=== PATIENT | male | born 1990 | race Caucasian/White ===

== ENCOUNTER 2016-12-12 19:08 | Inpatient (IN) | payer OTHER ==
[2016-12-12] MEDS ORDERED: IOPAMIDOL (ISOVUE-300) 100 ML BTL ONE (19:21)
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
[2016-12-12 19:23] LABS: % IMMATURE GRANULYOCYTES 1.1 % (0.0-1.1); ADD DIFF? NO; ADD MORPH? NO; ADD SCAN? NO; ATYPICAL LYMPHOCYTE FLAG 10 (0-99); FRAGMENT RBC FLAG 0 (0-99); HEMATOCRIT 41.7 % (40.0-51.0); HEMOGLOBIN 14.7 g/dL (13.7-17.5); LEFT SHIFT FLG 10 (0-99); LIPEMIA HEMOLYSIS FLAG 90 (0-99); MEAN CELL HEMOGLOBIN 30.6 pg (27.9-34.1); MEAN CELL HEMOGLOBIN CONCENTR. 35.3 g/dL (32.4-36.7); MEAN CELL VOLUME 86.7 fL (81.5-99.8); MEAN PLATELET VOLUME 11.3 fL (8.7-11.7); PLATELET CLUMPS FLAG 0 (0-99); PLATELET COUNT 276 10^3/uL (150-400); RED BLOOD CELL COUNT 4.81 10^6/uL (4.40-6.38); RED CELL DISTRIBUTION WIDTH 11.9 % (11.5-15.2)
[2016-12-12 19:36] LABS: ANION GAP 15 mEq/L (8-16); CALCIUM 9.4 mg/dL (8.5-10.4); CARBON DIOXIDE 24 mEq/l (22-31); CHLORIDE 108 mEq/L (97-110); CREATININE 1.2 mg/dL (0.7-1.3); GLOMERULAR FILTRATION RATE > 60; GLUCOSE 110 mg/dL (70-100); POTASSIUM 3.9 mEq/L (3.5-5.2); SODIUM 147 mEq/L (134-144)
[2016-12-12] MEDS ORDERED: fentaNYL 100 MCG/2 ML INJ ONE (19:38)
[2016-12-12] MEDS ORDERED: ONDANSETRON 4 MG/2 ML VIAL ONE (19:38)
[2016-12-12] MEDS ORDERED: KETAMINE 100 MG/10 ML SYR ONE (20:03)
[2016-12-12] MEDS ORDERED: KETAMINE 100 MG/10 ML SYR IVP ONE ×2 (20:07→20:51)
[2016-12-12 20:11] LABS: INR 1.22 (0.83-1.16); PROTIME(PATIENT) 15.4 SEC (12.0-15.0)
[2016-12-12 20:12] LABS: APTT 21.8 SEC (23.0-38.0)
[2016-12-12] MEDS ORDERED: fentaNYL 100 MCG/2 ML INJ IVP ONE ×2 (20:15→20:47)
[2016-12-12] MEDS ORDERED: ONDANSETRON 4 MG/2 ML VIAL IVP ONE (20:15)
[2016-12-12] MEDS ORDERED: NS 1,000 ML IV ONE (20:15)
[2016-12-12 20:17] LABS: HEMATOCRIT 37.4 % (40.0-51.0); HEMOGLOBIN 13.1 g/dL (13.7-17.5)
[2016-12-12] MEDS ORDERED: KETAMINE 500 MG/10 ML VIAL IVP ONE ×2 (21:07→21:35)
[2016-12-12] MEDS ORDERED: NALOXONE HCL 0.4 MG/ML INJ IVP PRN ×2 (21:46→21:51)
[2016-12-12] MEDS ORDERED: ONDANSETRON 4 MG/2 ML VIAL IVP PRN (21:46)
[2016-12-12] MEDS ORDERED: LORazepam 2 MG/ML INJ IVP PRN (21:46)
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
[2016-12-12] MEDS: morphINE PCA 30 MG/30 ML PCA IV PRN (22:14)
[2016-12-12] MEDS: NS 1,000 ML IV SCH (22:15)
[2016-12-12 22:25] LABS: BILIRUBIN,TOTAL 0.6 mg/dL (0.1-1.4); BILIRUBIN-CONJUGATED 0.4 mg/dL (0.0-0.5); BILIRUBIN-UNCONJUGATED 0.2 mg/dL (0.0-1.1); TOTAL PROTEIN 6.7 g/dL (6.3-8.2)
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
[2016-12-13 05:56] LABS: % IMMATURE GRANULYOCYTES 0.4 % (0.0-1.1); ABSOLUTE IMMATURE GRANULOCYTES 0.04 10^3/uL (0.00-0.10); ADD DIFF? NO; ADD MORPH? NO; ADD SCAN? NO; ATYPICAL LYMPHOCYTE FLAG 0 (0-99); FRAGMENT RBC FLAG 0 (0-99); HEMATOCRIT 35.9 % (40.0-51.0); HEMOGLOBIN 12.5 g/dL (13.7-17.5); LEFT SHIFT FLG 10 (0-99); LIPEMIA HEMOLYSIS FLAG 90 (0-99); MEAN CELL HEMOGLOBIN 30.9 pg (27.9-34.1); MEAN CELL HEMOGLOBIN CONCENTR. 34.8 g/dL (32.4-36.7); MEAN CELL VOLUME 88.6 fL (81.5-99.8); PLATELET CLUMPS FLAG 0 (0-99); PLATELET COUNT 191 10^3/uL (150-400); RED BLOOD CELL COUNT 4.05 10^6/uL (4.40-6.38); RED CELL DISTRIBUTION WIDTH 12.3 % (11.5-15.2)
[2016-12-13 08:40] LABS: ALANINE AMINOTRANSFERASE 724 IU/L (21-72); ALBUMIN 3.4 g/dL (3.5-5.0); ALKALINE PHOSPHATASE 36 IU/L (38-126); ANION GAP 9 mEq/L (8-16); ASPARTATE AMINOTRANSFERASE 727 IU/L (17-59); BILIRUBIN,TOTAL 1.2 mg/dL (0.1-1.4); CALCIUM 8.2 mg/dL (8.5-10.4); CARBON DIOXIDE 25 mEq/l (22-31); CHLORIDE 111 mEq/L (97-110); GLOMERULAR FILTRATION RATE > 60; GLUCOSE 122 mg/dL (70-100); POTASSIUM 4.2 mEq/L (3.5-5.2); SODIUM 145 mEq/L (134-144); TOTAL PROTEIN 5.6 g/dL (6.3-8.2)
[2016-12-13] MEDS ORDERED: PNEUMOCOCCAL 0.5ML VACCINE VIAL IM ONE (09:03)
[2016-12-13] MEDS: FAMOTIDINE 20 MG/NACL 50 ML IV SCH ×2 (09:08→20:43)
[2016-12-13] MEDS: NS 1,000 ML IV SCH ×2 (09:11→17:58)
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
[2016-12-13] MEDS: morphINE PCA 30 MG/30 ML PCA IV PRN ×2 (10:03→17:57)
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
--- NOTE | 2016-12-14 00:21 | TRAUMAPN ---
Assessment/Plan: PAD#1 12/13/2016 4138 Assessment: * TERTIARY EVALUATION SHOWS NO NEW /UNRECOGNIZED INJURIES *Grade 4 liver laceration - minimal drop in Hct. *Right 11th rib Fracture - CXR has been stable *Abdominal wall hernia/rectus sheath tear- Herniated small bowel has been reduced (by * am 12/13) *Urethral stricture - Cui passed without difficulty by Rhonda Winchester *Passing flatus/Minimal NG output. Plan: With chance of further hepatic bleeding diminishing and GI tract function returning, will start clear liquids in AM will follow H/H Will plan FU CXR in AM Will delay intervention for rectus sheath tear at this time. Will consider reimaging. Subjective: No complaints but NG irritation Objective: Vital Signs Temp Pulse Resp BP Pulse Ox 37.7 C 95 17 114/59 L 100 12/13/16 20:00 12/13/16 22:00 12/13/16 22:00 12/13/16 22:00 12/13/16 22:00 Laboratory Results 12/13/16 21:45 12/13/16 08:15 12/12/16 12/13/16 12/14/16 05:59 05:59 05:59 Intake Total 1734 1250 Output Total 400 1950 Balance 1334 -700 PT 15.4 SEC (12.0-15.0) H 12/12/16 19:10 INR 1.22 (0.83-1.16) H 12/12/16 19:10 - C-Spine Clearance Cervical Spine Cleared: Yes Physical Exam - Physical Exam General Appearance: WD/WN, alert, no apparent distress EENT: PERRL/EOMI, normal ENT inspection, pharynx normal, other (NG tube in place ( but to be removed)) Neck: non-tender, full range of motion, supple, normal inspection Respiratory: chest non-tender, lungs clear, normal breath sounds, other ( Complains of sternal tenderness) Cardiac/Chest: normal peripheral pulses, regular rate, rhythm Abdomen: normal bowel sounds, non-tender, soft, other (Slight ecchymosis in right inguinal region. Examined with Dr. Beck this AM. Hernia has reduced) Male Genitalia: deferred Rectal: deferred Back: Normal inspection Skin: normal color, warm/dry Lymphatic: no adenopathy Extremities: normal range of motion, non-tender, normal inspection Neuro/Psych: no motor/sensory deficits, alert, normal mood/affect, oriented x 3 Time Spent w/Patient (minutes): 30 (critical care time/family discussion)
[2016-12-14] MEDS: NS 1,000 ML IV SCH ×2 (03:28→14:05)
[2016-12-14 06:25] LABS: HEMATOCRIT 32.1 % (40.0-51.0); MEAN CELL HEMOGLOBIN 30.7 pg (27.9-34.1); MEAN CELL HEMOGLOBIN CONCENTR. 34.3 g/dL (32.4-36.7); MEAN CELL VOLUME 89.7 fL (81.5-99.8); RED BLOOD CELL COUNT 3.58 10^6/uL (4.40-6.38); RED CELL DISTRIBUTION WIDTH 12.3 % (11.5-15.2)
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
[2016-12-14] MEDS: FAMOTIDINE 20 MG/NACL 50 ML IV SCH ×2 (09:36→20:57)
[2016-12-14] MEDS: Lisdexamfetamine Dimesylate [Vyvanse] 30 MG PO SCH (09:36)
[2016-12-14] MEDS ORDERED: LACTULOSE 20 GM/30 ML UDCUP PO PRN (15:15)
[2016-12-14] MEDS ORDERED: POLYETHYLENE GLYCOL 3350 17 GM PKT PO PRN (15:15)
[2016-12-14] MEDS ORDERED: BISACODYL 10 MG SUPP PR PRN (15:15)
[2016-12-14] MEDS: MAGNESIUM HYDROXIDE 30 ML UDCUP PO PRN (15:43)
[2016-12-14] MEDS: SENNOSIDES/DOCUSATE SODIUM TAB PO SCH ×2 (15:44→20:57)
[2016-12-14] MEDS: morphINE PCA 30 MG/30 ML PCA IV PRN (20:14)
--- NOTE | 2016-12-14 20:14 | TRAUMAPN ---
Assessment/Plan: PAD#1 12/13/2016 2350 Assessment: * TERTIARY EVALUATION SHOWS NO NEW /UNRECOGNIZED INJURIES *Grade 4 liver laceration - minimal drop in Hct. *Right 11th rib Fracture - CXR has been stable *Abdominal wall hernia/rectus sheath tear- Herniated small bowel has been reduced (by * am 12/13) *Urethral stricture - Cui passed without difficulty by Rhonda Winchester *Passing flatus/Minimal NG output. Plan: With chance of further hepatic bleeding diminishing and GI tract function returning, will start clear liquids in AM will follow H/H Will plan FU CXR in AM Will delay intervention for rectus sheath tear at this time. Will consider reimaging. PAD#2 12/14/2016 20:09 Assessment: *Grade 4 liver laceration - stable, LFTs resolving *Right 11th rib Fracture - CXR stable - still needs to work on IS *Abdominal wall hernia/rectus sheath tear- Will reassess with CT on after he has been up walking *Urethral stricture - Cui passed without difficulty by Rhonda Winchester *Passing flatus, no stool yet Plan: F/u CT on Will mobilize and advance diet Will follow CBC and LFTs Need to improve IS results Subjective: I am getting full easily . Objective: Vital Signs Temp Pulse Resp BP Pulse Ox 37.3 C 92 18 115/55 L 97 12/14/16 18:00 12/14/16 18:00 12/14/16 18:00 12/14/16 18:00 12/14/16 18:00 Laboratory Results 12/14/16 05:55 12/13/16 08:15 12/13/16 12/14/16 12/15/16 05:59 05:59 05:59 Intake Total 1734 2452 1765 Output Total 400 2725 1900 Balance 1334 -273 -135 PT 15.4 SEC (12.0-15.0) H 12/12/16 19:10 INR 1.22 (0.83-1.16) H 12/12/16 19:10 - C-Spine Clearance Cervical Spine Cleared: Yes Physical Exam - Physical Exam General Appearance: WD/WN, alert, mild distress EENT: PERRL/EOMI, normal ENT inspection Neck: non-tender, full range of motion, supple, normal inspection Respiratory: chest non-tender, lungs clear, normal breath sounds (No E-A changes ) Cardiac/Chest: regular rate, rhythm Abdomen: normal bowel sounds, other (Right lower quadrant ecchymosis is becoming more apparent. no buldging / obvious hernia) Male Genitalia: deferred Rectal: deferred Back: Normal inspection Skin: normal color, warm/dry Extremities: normal range of motion, non-tender, normal inspection Neuro/Psych: no motor/sensory deficits, alert, normal mood/affect, oriented x 3 Time Spent w/Patient (minutes): 30 (time spent evaluating patient and discussing plans with family)
[2016-12-15 07:14] LABS: % IMMATURE GRANULYOCYTES 0.3 % (0.0-1.1); ABSOLUTE IMMATURE GRANULOCYTES 0.02 10^3/uL (0.00-0.10); ADD DIFF? NO; ADD MORPH? NO; ADD SCAN? NO; ATYPICAL LYMPHOCYTE FLAG 0 (0-99); FRAGMENT RBC FLAG 0 (0-99); HEMATOCRIT 30.8 % (40.0-51.0); HEMOGLOBIN 10.8 g/dL (13.7-17.5); LEFT SHIFT FLG 0 (0-99); LIPEMIA HEMOLYSIS FLAG 90 (0-99); MEAN CELL HEMOGLOBIN 30.7 pg (27.9-34.1); MEAN CELL HEMOGLOBIN CONCENTR. 35.1 g/dL (32.4-36.7); MEAN CELL VOLUME 87.5 fL (81.5-99.8); MEAN PLATELET VOLUME 10.7 fL (8.7-11.7); PLATELET CLUMPS FLAG 0 (0-99); PLATELET COUNT 147 10^3/uL (150-400); RED BLOOD CELL COUNT 3.52 10^6/uL (4.40-6.38); RED CELL DISTRIBUTION WIDTH 11.9 % (11.5-15.2)
[2016-12-15 07:23] LABS: INR 1.23 (0.83-1.16); PROTIME(PATIENT) 15.5 SEC (12.0-15.0)
[2016-12-15 07:55] LABS: ALANINE AMINOTRANSFERASE 399 IU/L (21-72); ALBUMIN 3.2 g/dL (3.5-5.0); ALKALINE PHOSPHATASE 179 IU/L (38-126); ANION GAP 7 mEq/L (8-16); ASPARTATE AMINOTRANSFERASE 346 IU/L (17-59); BILIRUBIN,TOTAL 3.7 mg/dL (0.1-1.4); CALCIUM 8.5 mg/dL (8.5-10.4); CARBON DIOXIDE 27 mEq/l (22-31); CHLORIDE 105 mEq/L (97-110); CREATININE 0.8 mg/dL (0.7-1.3); GLOMERULAR FILTRATION RATE > 60; GLUCOSE 89 mg/dL (70-100); POTASSIUM 3.7 mEq/L (3.5-5.2); SODIUM 139 mEq/L (134-144); TOTAL PROTEIN 5.5 g/dL (6.3-8.2)
[2016-12-15 08:02] LABS: BILIRUBIN-CONJUGATED 2.1 mg/dL (0.0-0.5); BILIRUBIN-UNCONJUGATED 1.6 mg/dL (0.0-1.1)
[2016-12-15] MEDS: SENNOSIDES/DOCUSATE SODIUM TAB PO SCH ×2 (08:02→20:02)
[2016-12-15] MEDS: Lisdexamfetamine Dimesylate [Vyvanse] 30 MG PO SCH (08:03)
[2016-12-15] MEDS: FAMOTIDINE 20 MG/NACL 50 ML IV SCH ×2 (08:49→20:03)
--- NOTE | 2016-12-15 10:47 | TRAUMAPN ---
Assessment/Plan: PAD#1 12/13/2016 2350 Assessment: * TERTIARY EVALUATION SHOWS NO NEW /UNRECOGNIZED INJURIES *Grade 4 liver laceration - minimal drop in Hct. *Right 11th rib Fracture - CXR has been stable *Abdominal wall hernia/rectus sheath tear- Herniated small bowel has been reduced (by * am 12/13) *Urethral stricture - Barrios passed without difficulty by Rhonda Winchester *Passing flatus/Minimal NG output. Plan: With chance of further hepatic bleeding diminishing and GI tract function returning, will start clear liquids in AM will follow H/H Will plan FU CXR in AM Will delay intervention for rectus sheath tear at this time. Will consider reimaging. PAD#2 12/14/2016 20:09 Assessment: *Grade 4 liver laceration - stable, LFTs resolving *Right 11th rib Fracture - CXR stable - still needs to work on IS *Abdominal wall hernia/rectus sheath tear- Will reassess with CT on after he has been up walking *Urethral stricture - Barrios passed without difficulty by Rhonda Winchester *Passing flatus, no stool yet Plan: F/u CT on Will mobilize and advance diet Will follow CBC and LFTs Need to improve IS results PAD#3 12/15/2016 Assessment: *Grade 4 liver laceration - stable, LFTs resolving but Bilirubin up (leak vs. lysis of blood/hematoma vs. combination) *Right 11th rib Fracture - CXR stable - still needs to work on IS ( only to 1750 ) *Abdominal wall hernia/rectus sheath tear- Will reassess with CT today *Urethral stricture - Barrios passed without difficulty by Rhonda Winchester *Passing flatus, no stool yet, eating Plan: F/u CT today to assess for biloma and to assess abdominal wall injury Will continue to mobilize Will follow CBC and LFTs Need to improve IS results Continue barrios since stricture noted and recent urinary retention ( 600 cc) Will get F/u CXR tomorrow Subjective: RLQ pain less today with walking Objective: Vital Signs Temp Pulse Resp BP Pulse Ox 36.7 C 88 16 130/68 H 92 12/15/16 10:25 12/15/16 10:25 12/15/16 10:25 12/15/16 10:25 12/15/16 10:25 Laboratory Results 12/15/16 07:00 12/15/16 07:00 12/14/16 12/15/16 12/16/16 05:59 05:59 05:59 Intake Total 2452 2991.3 Output Total 2725 3040 Balance -273 -48.7 PT 15.5 SEC (12.0-15.0) H 12/15/16 07:00 INR 1.23 (0.83-1.16) H 12/15/16 07:00 - C-Spine Clearance Cervical Spine Cleared: Yes Physical Exam - Physical Exam General Appearance: WD/WN, alert, mild distress EENT: PERRL/EOMI Neck: non-tender, full range of motion, supple, normal inspection Respiratory: chest non-tender, lungs clear, normal breath sounds Cardiac/Chest: regular rate, rhythm Abdomen: normal bowel sounds, other (elevator tender in RLQ) Male Genitalia: deferred Rectal: deferred Back: Normal inspection Skin: normal color, warm/dry Lymphatic: no adenopathy Extremities: normal range of motion, non-tender, normal inspection Neuro/Psych: no motor/sensory deficits, alert, normal mood/affect, oriented x 3 Time Spent w/Patient (minutes): 25 (Moved out of ICU after rounds today)
[2016-12-15] MEDS ORDERED: IOPAMIDOL (ISOVUE-300) 100 ML BTL ONE (13:11)
[2016-12-15] MEDS: HYDROmorphONE/DILAUDID 2 MG TAB PO PRN ×2 (13:59→18:22)
[2016-12-15] MEDS: HYDROmorphONE/DILAUDID 1 MG/ML SYR IVP PRN ×2 (14:00→20:23)
[2016-12-15] MEDS: MAGNESIUM HYDROXIDE 30 ML UDCUP PO PRN (18:28)
[2016-12-16] MEDS: HYDROmorphONE/DILAUDID 2 MG TAB PO PRN ×5 (01:56→23:26)
[2016-12-16 05:46] LABS: HEMATOCRIT 30.1 % (40.0-51.0); HEMOGLOBIN 10.8 g/dL (13.7-17.5); MEAN CELL HEMOGLOBIN 31.4 pg (27.9-34.1); MEAN CELL HEMOGLOBIN CONCENTR. 35.9 g/dL (32.4-36.7); MEAN CELL VOLUME 87.5 fL (81.5-99.8); RED BLOOD CELL COUNT 3.44 10^6/uL (4.40-6.38); RED CELL DISTRIBUTION WIDTH 12.2 % (11.5-15.2)
[2016-12-16 06:02] LABS: ALANINE AMINOTRANSFERASE 299 IU/L (21-72); ALBUMIN 3.4 g/dL (3.5-5.0); ALKALINE PHOSPHATASE 396 IU/L (38-126); ANION GAP 10 mEq/L (8-16); ASPARTATE AMINOTRANSFERASE 279 IU/L (17-59); BILIRUBIN,TOTAL 4.3 mg/dL (0.1-1.4); CALCIUM 8.4 mg/dL (8.5-10.4); CARBON DIOXIDE 26 mEq/l (22-31); CHLORIDE 104 mEq/L (97-110); CREATININE 0.8 mg/dL (0.7-1.3); GLOMERULAR FILTRATION RATE > 60; GLUCOSE 97 mg/dL (70-100); POTASSIUM 3.6 mEq/L (3.5-5.2); SODIUM 140 mEq/L (134-144); TOTAL PROTEIN 5.7 g/dL (6.3-8.2)
[2016-12-16 06:09] LABS: BILIRUBIN-CONJUGATED 2.2 mg/dL (0.0-0.5); BILIRUBIN-UNCONJUGATED 2.1 mg/dL (0.0-1.1)
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
[2016-12-16] MEDS: SENNOSIDES/DOCUSATE SODIUM TAB PO SCH ×2 (09:55→20:54)
[2016-12-16] MEDS: FAMOTIDINE 20 MG/NACL 50 ML IV SCH ×2 (09:55→20:54)
[2016-12-16] MEDS: Lisdexamfetamine Dimesylate [Vyvanse] 30 MG PO SCH (09:56)
[2016-12-17] MEDS: HYDROmorphONE/DILAUDID 2 MG TAB PO PRN ×5 (05:33→22:46)
[2016-12-17 05:37] LABS: ABSOLUTE IMMATURE GRANULOCYTES 0.07 10^3/uL (0.00-0.10); ADD DIFF? NO; ADD MORPH? NO; ADD SCAN? NO; ATYPICAL LYMPHOCYTE FLAG 0 (0-99); FRAGMENT RBC FLAG 0 (0-99); HEMATOCRIT 31.8 % (40.0-51.0); HEMOGLOBIN 11.1 g/dL (13.7-17.5); LEFT SHIFT FLG 10 (0-99); LIPEMIA HEMOLYSIS FLAG 90 (0-99); MEAN CELL HEMOGLOBIN 30.6 pg (27.9-34.1); MEAN CELL HEMOGLOBIN CONCENTR. 34.9 g/dL (32.4-36.7); MEAN CELL VOLUME 87.6 fL (81.5-99.8); MEAN PLATELET VOLUME 10.6 fL (8.7-11.7); PLATELET CLUMPS FLAG 10 (0-99); PLATELET COUNT 200 10^3/uL (150-400); RED BLOOD CELL COUNT 3.63 10^6/uL (4.40-6.38); RED CELL DISTRIBUTION WIDTH 12.3 % (11.5-15.2)
[2016-12-17 05:51] LABS: ALBUMIN 3.3 g/dL (3.5-5.0); BILIRUBIN,TOTAL 2.1 mg/dL (0.1-1.4); BILIRUBIN-CONJUGATED 0.8 mg/dL (0.0-0.5); BILIRUBIN-UNCONJUGATED 1.3 mg/dL (0.0-1.1); TOTAL PROTEIN 5.7 g/dL (6.3-8.2)
--- NOTE | 2016-12-17 09:31 | TRAUMAPN ---
Assessment/Plan: PAD#1 12/13/2016 2350 Assessment: * TERTIARY EVALUATION SHOWS NO NEW /UNRECOGNIZED INJURIES *Grade 4 liver laceration - minimal drop in Hct. *Right 11th rib Fracture - CXR has been stable *Abdominal wall hernia/rectus sheath tear- Herniated small bowel has been reduced (by * am 12/13) *Urethral stricture - Barrios passed without difficulty by Rhonda Winchester *Passing flatus/Minimal NG output. Plan: With chance of further hepatic bleeding diminishing and GI tract function returning, will start clear liquids in AM will follow H/H Will plan FU CXR in AM Will delay intervention for rectus sheath tear at this time. Will consider reimaging. PAD#2 12/14/2016 20:09 Assessment: *Grade 4 liver laceration - stable, LFTs resolving *Right 11th rib Fracture - CXR stable - still needs to work on IS *Abdominal wall hernia/rectus sheath tear- Will reassess with CT on after he has been up walking *Urethral stricture - Barrios passed without difficulty by Rhonda Winchester *Passing flatus, no stool yet Plan: F/u CT on Will mobilize and advance diet Will follow CBC and LFTs Need to improve IS results PAD#3 12/15/2016 Assessment: *Grade 4 liver laceration - stable, LFTs resolving but Bilirubin up (leak vs. lysis of blood/hematoma vs. combination) *Right 11th rib Fracture - CXR stable - still needs to work on IS ( only to 1749 ) *Abdominal wall hernia/rectus sheath tear- Will reassess with CT today *Urethral stricture - Barrios passed without difficulty by Rhonda Winchester *Passing flatus, no stool yet, eating Plan: F/u CT today to assess for biloma and to assess abdominal wall injury Will continue to mobilize Will follow CBC and LFTs Need to improve IS results Continue barrios since stricture noted and recent urinary retention ( 600 cc) Will get F/u CXR tomorrow PAD#4 12/17/2016 Assessment: *Grade 4 liver laceration - stable, LFTs & bilirubin resolving *Right 11th rib Fracture - CXR stable with atelectasis vs contusion- still needs to work on IS ( only to 1999) *Abdominal wall hernia/rectus sheath tear- tolerating activity - not yet set for surgery *Urethral stricture - Barrios passed without difficulty by Rhonda Winchester *Passing flatus, no stool yet, eating ( no obstruction with hernia ) Plan: Will continue to mobilize Will follow CBC and LFTs Need to improve IS results Continue Barrios since stricture noted and recent urinary retention ( 600 cc). Note that he has self cathed in past. Objective: Vital Signs Temp Pulse Resp BP Pulse Ox 37.0 C 81 16 116/59 L 95 12/17/16 07:39 12/17/16 07:39 12/17/16 07:39 12/17/16 07:39 12/17/16 07:39 Laboratory Results 12/17/16 05:04 12/16/16 04:51 12/16/16 12/17/16 12/18/16 05:59 05:59 05:59 Intake Total 400 1250 Output Total 2500 3850 Balance -2100 -2600 PT 15.5 SEC (12.0-15.0) H 12/15/16 07:00 INR 1.23 (0.83-1.16) H 12/15/16 07:00 - C-Spine Clearance Cervical Spine Cleared: Yes Physical Exam - Physical Exam General Appearance: WD/WN, no apparent distress Neck: non-tender, full range of motion, supple, normal inspection Respiratory: chest non-tender, lungs clear, normal breath sounds Cardiac/Chest: regular rate, rhythm Abdomen: normal bowel sounds, soft, other (right inguinal fullness, has right flank/hip/lateral thigh ecchymosis) Male Genitalia: deferred Rectal: deferred Back: Normal inspection Skin: normal color, warm/dry Lymphatic: no adenopathy Extremities: normal range of motion Neuro/Psych: no motor/sensory deficits, alert, normal mood/affect, oriented x 3 Time Spent w/Patient (minutes): 25 ( part spent in family conference)
[2016-12-17] MEDS: FAMOTIDINE 20 MG/NACL 50 ML IV SCH ×2 (09:38→21:37)
[2016-12-17] MEDS: SENNOSIDES/DOCUSATE SODIUM TAB PO SCH ×2 (09:40→21:37)
[2016-12-17] MEDS: Lisdexamfetamine Dimesylate [Vyvanse] 30 MG PO SCH (10:12)
[2016-12-18] MEDS: HYDROmorphONE/DILAUDID 2 MG TAB PO PRN ×4 (04:06→21:04)
[2016-12-18 06:03] LABS: ALANINE AMINOTRANSFERASE 164 IU/L (21-72); ALBUMIN 3.5 g/dL (3.5-5.0); ALKALINE PHOSPHATASE 315 IU/L (38-126); ANION GAP 10 mEq/L (8-16); ASPARTATE AMINOTRANSFERASE 157 IU/L (17-59); BILIRUBIN,TOTAL 2.1 mg/dL (0.1-1.4); CALCIUM 9.1 mg/dL (8.5-10.4); CARBON DIOXIDE 23 mEq/l (22-31); CHLORIDE 105 mEq/L (97-110); CREATININE 0.9 mg/dL (0.7-1.3); GLOMERULAR FILTRATION RATE > 60; GLUCOSE 114 mg/dL (70-100); SODIUM 138 mEq/L (134-144); TOTAL PROTEIN 6.1 g/dL (6.3-8.2)
[2016-12-18 06:09] LABS: BILIRUBIN-CONJUGATED 0.8 mg/dL (0.0-0.5); BILIRUBIN-UNCONJUGATED 1.3 mg/dL (0.0-1.1)
[2016-12-18] MEDS: SENNOSIDES/DOCUSATE SODIUM TAB PO SCH ×2 (09:43→21:03)
[2016-12-18] MEDS: Lisdexamfetamine Dimesylate [Vyvanse] 30 MG PO SCH (09:46)
[2016-12-18] MEDS ORDERED: ONDANSETRON DISINTEGRATING 4 MG TAB PO PRN (09:48)
--- NOTE | 2016-12-18 09:56 | TRAUMAPN ---
Assessment/Plan: PAD#1 12/13/2016 2350 Assessment: * TERTIARY EVALUATION SHOWS NO NEW /UNRECOGNIZED INJURIES *Grade 4 liver laceration - minimal drop in Hct. *Right 11th rib Fracture - CXR has been stable *Abdominal wall hernia/rectus sheath tear- Herniated small bowel has been reduced (by * am 12/13) *Urethral stricture - Barrios passed without difficulty by Rhonda Winchester *Passing flatus/Minimal NG output. Plan: With chance of further hepatic bleeding diminishing and GI tract function returning, will start clear liquids in AM will follow H/H Will plan FU CXR in AM Will delay intervention for rectus sheath tear at this time. Will consider reimaging. PAD#2 12/14/2016 20:09 Assessment: *Grade 4 liver laceration - stable, LFTs resolving *Right 11th rib Fracture - CXR stable - still needs to work on IS *Abdominal wall hernia/rectus sheath tear- Will reassess with CT on after he has been up walking *Urethral stricture - Barrios passed without difficulty by Rhonda Winchester *Passing flatus, no stool yet Plan: F/u CT on Will mobilize and advance diet Will follow CBC and LFTs Need to improve IS results PAD#3 12/15/2016 Assessment: *Grade 4 liver laceration - stable, LFTs resolving but Bilirubin up (leak vs. lysis of blood/hematoma vs. combination) *Right 11th rib Fracture - CXR stable - still needs to work on IS ( only to 1749 ) *Abdominal wall hernia/rectus sheath tear- Will reassess with CT today *Urethral stricture - Barrios passed without difficulty by Rhonda Winchester *Passing flatus, no stool yet, eating Plan: F/u CT today to assess for biloma and to assess abdominal wall injury Will continue to mobilize Will follow CBC and LFTs Need to improve IS results Continue barrios since stricture noted and recent urinary retention ( 600 cc) Will get F/u CXR tomorrow PAD#4 12/17/2016 Assessment: *Grade 4 liver laceration - stable, LFTs & bilirubin resolving *Right 11th rib Fracture - CXR stable with atelectasis vs contusion- still needs to work on IS ( only to 1999) *Abdominal wall hernia/rectus sheath tear- tolerating activity - not yet set for surgery *Urethral stricture - Barrios passed without difficulty by Rhonda Winchester *Passing flatus, no stool yet, eating ( no obstruction with hernia ) Plan: Will continue to mobilize Will follow CBC and LFTs Need to improve IS results Continue Barrios since stricture noted and recent urinary retention ( 600 cc). Note that he has self cathed in past. PAD#5 12/18/2016 Assessment: *Grade 4 liver laceration - stable, LFTs resolving bili stable *Right 11th rib Fracture - CXR stable with atelectasis vs contusion- still needs to work on IS ( only to 1999) *Abdominal wall hernia/rectus sheath tear- tolerating activity - not yet set for surgery *Urethral stricture - Barrios passed without difficulty by Rhonda Winchester *Passing flatus and stool, eating ( no obstruction with hernia ) Plan: Will continue to mobilize Will follow CBC and LFTs Need to improve IS results Continue Barrios since stricture noted and recent urinary retention ( 600 cc). Note that he has self cathed in past. will get F/u CXR Consider possible surgical intervention tomorrow Subjective: Still hurts the most when I get out of bed but its ok when I walk Objective: Vital Signs Temp Pulse Resp BP Pulse Ox 36.9 C 92 20 132/64 H 98 12/18/16 08:00 12/18/16 08:00 12/18/16 08:00 12/18/16 08:00 12/18/16 08:00 Laboratory Results 12/17/16 05:04 12/18/16 05:16 12/17/16 12/18/16 12/19/16 05:59 05:59 05:59 Intake Total 1250 700 Output Total 3850 2200 Balance -2600 -1500 PT 15.5 SEC (12.0-15.0) H 12/15/16 07:00 INR 1.23 (0.83-1.16) H 12/15/16 07:00 - C-Spine Clearance Cervical Spine Cleared: Yes Physical Exam - Physical Exam General Appearance: WD/WN, alert, no apparent distress Neck: non-tender, full range of motion Respiratory: chest non-tender, lungs clear, normal breath sounds Cardiac/Chest: regular rate, rhythm Abdomen: normal bowel sounds, non-tender, soft, other (able to reduce hernia without difficulty) Male Genitalia: deferred Rectal: deferred Back: Normal inspection Skin: normal color, warm/dry Extremities: normal range of motion, non-tender Neuro/Psych: no motor/sensory deficits, alert, normal mood/affect, oriented x 3 Time Spent w/Patient (minutes): 25
[2016-12-18] MEDS: FAMOTIDINE 20 MG TAB PO SCH (10:15)
[2016-12-18] MEDS: FAMOTIDINE 20 MG/NACL 50 ML IV SCH (10:16)
[2016-12-18] MEDS ORDERED: IOPAMIDOL (ISOVUE 370) 100 ML BTL IV ONE (17:48)
--- NOTE | 2016-12-18 19:52 | SOAPPROG ---
SOAP Progress Note Assessment/Plan: Assessment/Plan Patient c/o pain in right clavicle with deep breath. no tachycardia, hypoxia or tachyphemia PE w/u at Mom's request showed a small sub segmental PE in right lung. Venous duplex of leg negative. Additionally the right lobe intrahepatic fluid collection is larger. Seroma vs biloma? Will start therapeutic Lovenox, postpone consideration for surgery, DC barrios ( but test for post removal retention). Objective: Vital Signs Temp Pulse Resp BP Pulse Ox 37.4 C 84 20 118/57 L 95 12/18/16 16:00 12/18/16 16:00 12/18/16 16:00 12/18/16 16:00 12/18/16 16:00 Laboratory Results 12/17/16 05:04 12/18/16 05:16 12/17/16 12/18/16 12/19/16 05:59 05:59 05:59 Intake Total 1250 700 Output Total 3850 2200 400 Balance -2600 -1500 -400 PT 15.5 SEC (12.0-15.0) H 12/15/16 07:00 INR 1.23 (0.83-1.16) H 12/15/16 07:00 ICD10 Worksheet Patient Problems: Problems Problem Status Onset Abdominal wall hernia Acute Liver laceration, closed Acute Rib fracture Acute
[2016-12-18] MEDS: ENOXAPARIN 80 MG/0.8 ML SYR SC SCH (21:04)
[2016-12-19] MEDS: HYDROmorphONE/DILAUDID 2 MG TAB PO PRN ×5 (05:11→22:51)
[2016-12-19 05:16] LABS: % IMMATURE GRANULYOCYTES 1.1 % (0.0-1.1); ABSOLUTE IMMATURE GRANULOCYTES 0.08 10^3/uL (0.00-0.10); ADD DIFF? NO; ADD MORPH? NO; ADD SCAN? NO; ATYPICAL LYMPHOCYTE FLAG 40 (0-99); FRAGMENT RBC FLAG 0 (0-99); HEMATOCRIT 34.5 % (40.0-51.0); HEMOGLOBIN 12.1 g/dL (13.7-17.5); LEFT SHIFT FLG 10 (0-99); LIPEMIA HEMOLYSIS FLAG 90 (0-99); MEAN CELL HEMOGLOBIN 30.6 pg (27.9-34.1); MEAN CELL HEMOGLOBIN CONCENTR. 35.1 g/dL (32.4-36.7); MEAN CELL VOLUME 87.1 fL (81.5-99.8); MEAN PLATELET VOLUME 10.4 fL (8.7-11.7); PLATELET CLUMPS FLAG 10 (0-99); PLATELET COUNT 232 10^3/uL (150-400); RED BLOOD CELL COUNT 3.96 10^6/uL (4.40-6.38); RED CELL DISTRIBUTION WIDTH 12.1 % (11.5-15.2)
[2016-12-19 05:25] LABS: INR 1.19 (0.83-1.16); PROTIME(PATIENT) 15.1 SEC (12.0-15.0)
[2016-12-19 05:34] LABS: ALANINE AMINOTRANSFERASE 131 IU/L (21-72); ALBUMIN 3.6 g/dL (3.5-5.0); ALKALINE PHOSPHATASE 261 IU/L (38-126); ANION GAP 11 mEq/L (8-16); ASPARTATE AMINOTRANSFERASE 131 IU/L (17-59); BILIRUBIN,TOTAL 1.4 mg/dL (0.1-1.4); CALCIUM 8.8 mg/dL (8.5-10.4); CARBON DIOXIDE 23 mEq/l (22-31); CHLORIDE 104 mEq/L (97-110); CREATININE 0.8 mg/dL (0.7-1.3); GLOMERULAR FILTRATION RATE > 60; GLUCOSE 93 mg/dL (70-100); POTASSIUM 4.1 mEq/L (3.5-5.2); SODIUM 138 mEq/L (134-144); TOTAL PROTEIN 6.2 g/dL (6.3-8.2)
[2016-12-19] MEDS: SENNOSIDES/DOCUSATE SODIUM TAB PO SCH ×2 (09:11→20:39)
[2016-12-19] MEDS: FAMOTIDINE 20 MG TAB PO SCH (09:11)
[2016-12-19] MEDS: ENOXAPARIN 80 MG/0.8 ML SYR SC SCH (09:11)
[2016-12-19] MEDS: Lisdexamfetamine Dimesylate [Vyvanse] 30 MG PO SCH (09:21)
--- NOTE | 2016-12-19 09:34 | TRAUMAPN ---
Assessment/Plan: PAD#7 Assessment: Doing well. 1) PE -Found to have small PE last PM. Duplex of leg negative. Lovenox started will ask pharmacy to dose Coumadin starting today. 2) Intrahepatic Fluid collection - Enlarged on last night 's CT. Hematoma/ seroma vs Biloma vs. combination. Note bilirubin had been elevated but is continuing to fall. 3) traumatic right inguinal hernia - stable, nontender, no bowel blockage, partially reducible. 4) ecchymosis, RLQ/right hip/right thigh - not unexpected, K-Pad ordered Plan: Defer inguinal surgery anticoagulate for 3 months supportive care but home soon. Subjective: It only hurts when I try to get out of bed Objective: Vital Signs Temp Pulse Resp BP Pulse Ox 37.0 C 75 14 123/74 H 96 12/19/16 07:29 12/19/16 07:29 12/19/16 07:29 12/19/16 07:29 12/19/16 07:29 Laboratory Results 12/19/16 05:05 12/19/16 05:05 12/18/16 12/19/16 12/20/16 05:59 05:59 05:59 Intake Total 700 1000 Output Total 2200 1150 Balance -1500 -150 PT 15.1 SEC (12.0-15.0) H 12/19/16 05:05 INR 1.19 (0.83-1.16) H 12/19/16 05:05 - C-Spine Clearance Cervical Spine Cleared: Yes Physical Exam - Physical Exam General Appearance: WD/WN, alert, no apparent distress Neck: non-tender, full range of motion, supple Respiratory: chest non-tender, lungs clear, normal breath sounds Cardiac/Chest: regular rate, rhythm Abdomen: normal bowel sounds, non-tender, soft, other (has right inguinal tenderness with palpation only) Male Genitalia: deferred Rectal: deferred Back: Normal inspection Skin: normal color, warm/dry Extremities: normal range of motion, non-tender, normal inspection, normal capillary refill Neuro/Psych: no motor/sensory deficits, alert, normal mood/affect, oriented x 3 Time Spent w/Patient (minutes): 25
[2016-12-19] MEDS ORDERED: WARFARIN SODIUM 5 MG TAB PO ONE (16:00)
[2016-12-19] MEDS: ENOXAPARIN 100 MG/ML SYR SC SCH (20:40)
[2016-12-20 05:01] LABS: INR 1.27 (0.83-1.16); PROTIME(PATIENT) 15.9 SEC (12.0-15.0)
[2016-12-20] MEDS: HYDROmorphONE/DILAUDID 2 MG TAB PO PRN ×2 (07:40→20:22)
[2016-12-20] MEDS: ENOXAPARIN 100 MG/ML SYR SC SCH (07:42)
[2016-12-20] MEDS: FAMOTIDINE 20 MG TAB PO SCH (07:42)
[2016-12-20] MEDS: SENNOSIDES/DOCUSATE SODIUM TAB PO SCH ×2 (07:42→20:21)
[2016-12-20] MEDS: Lisdexamfetamine Dimesylate [Vyvanse] 30 MG PO SCH (09:07)
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
[2016-12-20] MEDS ORDERED: WARFARIN SODIUM 5 MG TAB PO ONE (16:00)
[2016-12-20] MEDS ORDERED: ENOXAPARIN 100 MG/ML SYR SC SCH (21:00)
[2016-12-21] MEDS: HYDROmorphONE/DILAUDID 2 MG TAB PO PRN ×3 (03:15→16:14)
[2016-12-21 05:12] LABS: INR 1.6 (0.83-1.16); PROTIME(PATIENT) 19.1 SEC (12.0-15.0)
[2016-12-21] MEDS ORDERED: IOPAMIDOL (ISOVUE-300) 100 ML BTL ONE (06:48)
[2016-12-21 06:50] LABS: % IMMATURE GRANULYOCYTES 1.6 % (0.0-1.1); ADD DIFF? NO; ADD MORPH? NO; ADD SCAN? NO; ATYPICAL LYMPHOCYTE FLAG 40 (0-99); FRAGMENT RBC FLAG 0 (0-99); HEMOGLOBIN 12.4 g/dL (13.7-17.5); LEFT SHIFT FLG 10 (0-99); LIPEMIA HEMOLYSIS FLAG 90 (0-99); MEAN CELL HEMOGLOBIN 30.3 pg (27.9-34.1); MEAN CELL HEMOGLOBIN CONCENTR. 34.4 g/dL (32.4-36.7); MEAN PLATELET VOLUME 10.3 fL (8.7-11.7); PLATELET CLUMPS FLAG 0 (0-99); PLATELET COUNT 307 10^3/uL (150-400); RED BLOOD CELL COUNT 4.09 10^6/uL (4.40-6.38)
[2016-12-21 07:01] LABS: PLATELET COUNT 307 10^3/uL (150-400)
[2016-12-21 07:18] LABS: INR 1.57 (0.83-1.16); PROTIME(PATIENT) 18.8 SEC (12.0-15.0)
[2016-12-21 07:19] LABS: APTT 31.4 SEC (23.0-38.0)
[2016-12-21 08:16] VITALS: RESP 16
[2016-12-21 08:38] LABS: FIBRINOGEN 553 mg/dL (214-456)
[2016-12-21] MEDS: SENNOSIDES/DOCUSATE SODIUM TAB PO SCH (10:47)
[2016-12-21] MEDS: FAMOTIDINE 20 MG TAB PO SCH (10:47)
[2016-12-21] MEDS: Lisdexamfetamine Dimesylate [Vyvanse] 30 MG PO SCH (10:53)
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
[2016-12-21 17:01] VITALS: BP 108/73; PULSE 78; TEMP 97.9; O2SAT 96
== END 2016-12-21 19:22 | disposition short-term general hospital (02) | DRG 442 ==
LOC: F2N 21:50 → F3E 12-15 10:19
PROVIDERS: ADMIT Surgery; ATTEND Surgery
DX: S36.113A Laceration of liver, unspecified degree, initial encounter (principal); S22.31XA Fracture of one rib, right side, initial encounter for closed fracture; S22.20XA Unspecified fracture of sternum, initial encounter for closed fracture; V94.31XA Injury to rider of (inflatable) recreational watercraft being pulled behind other watercraft, initial encounter; Y93.16 Activity, rowing, canoeing, kayaking, rafting and tubing; Y92.838 Other recreation area as the place of occurrence of the external cause; Z23 Encounter for immunization
CPT/HCPCS: 82947-QW; 92523-GN; 96374; 97116-GP; 97161-GP; 97166-GO; 97535-GO; G0009; J1170; J1650; J2060; J2270; J2405; J3010; Q9967